=== PATIENT | male | born 1960 | race Hispanic/Latino ===

== ENCOUNTER 2019-02-09 15:32 | Inpatient (IN) | payer OTHER ==
[~2019-02-09] VITALS: Ht 180.3 cm; Wt 104.3 kg
[2019-02-09] MEDS ORDERED: ONDANSETRON HCL 4 MG/2 ML VIAL ONE ×2 (15:57→20:59)
[2019-02-09] MEDS ORDERED: MORPHINE SULFATE 4 MG/1ML SYG ONE (15:57)
[2019-02-09] MEDS ORDERED: SODIUM CHLORIDE 0.9% 1000ML 1,000 ML IV ONE (15:58)
[2019-02-09 16:07] LABS: BASOPHILS % (AUTO) 0.5 % (0.0-5.0); EOSINOPHILS % (AUTO) 1.7 % (0.0-8.0); HEMATOCRIT 46.6 % (42-54); LYMPHOCYTES % (AUTO) 28.1 % (21.0-51.0); MEAN CORPUSCULAR HEMOGLOBIN 32.4 pg (27.0-33.0); MEAN CORPUSCULAR VOLUME 95.2 fL (79-99); MONOCYTES % (AUTO) 9.4 % (3.0-13.0); NEUTROPHILS % (AUTO) 60.3 % (40.0-77.0); PLATELET COUNT (AUTO) 230 K/uL (130-400); RED CELL DISTRIBUTION WIDTH 13.5 % (11.0-15.5); WHITE BLOOD COUNT (AUTO) 7.9 K/uL (4.8-10.8)
[2019-02-09 16:19] LABS: CREATININE 1.1 mg/dL (0.5-1.5); POTASSIUM 3.7 mmol/L (3.5-5.1)
[2019-02-09 16:24] LABS: ALBUMIN 3.6 g/dL (3.5-5.0); TOTAL PROTEIN, SERUM 7.5 g/dL (6.0-8.3)
[2019-02-09 16:41] LABS: APPEARANCE,URINE Clear (CLEAR); BILIRUBIN,URINE Moderate (NEGATIVE); COLOR,URINE Dark Yellow (YELLOW); GLUCOSE, URINE (UA) Negative (NEGATIVE); KETONES,URINE Trace mg/dL (NEGATIVE); LEUKOCYTE ESTERASE ,URINE Trace (NEGATIVE); NITRATE,URINE Negative (NEGATIVE); OCCULT BLOOD,URINE Negative (NEGATIVE); PROTEIN,URINE Negative (NEGATIVE)
[2019-02-09 17:02] LABS: BACTERIA,URINE Rare /HPF (None Seen); MUCUS,URINE Many LPF (None Seen); RBC,URINE None Seen /HPF (0-1); WBC,URINE 0-1 /HPF (0-1)
[2019-02-09] MEDS: SODIUM CHLORIDE 0.9% 1000ML 1,000 ML IV SCH (19:24)
[2019-02-09] MEDS ORDERED: HYDRALAZINE HCL 20 MG/ML VIAL IV PRN (19:30)
[2019-02-09] MEDS ORDERED: ZOLPIDEM TARTRATE 5 MG TAB PO PRN (19:30)
[2019-02-09 20:40] VITALS: BP 172/94
[2019-02-09] MEDS ORDERED: MORPHINE SULFATE 2 MG/ML 1ML SYG ONE (20:59)
[2019-02-09] MEDS ORDERED: ONDANSETRON HCL 4 MG/2 ML VIAL IVP PRN (21:00)
[2019-02-09] MEDS ORDERED: MORPHINE SULFATE 2 MG/ML 1ML SYG IVP PRN (21:00)
[2019-02-09] MEDS: FAMOTIDINE/PF 20 MG/2 ML VIAL IV SCH (21:06)
[2019-02-09] MEDS ORDERED: MORPHINE SULFATE 4 MG/1ML SYG IV PRN (21:30)
[2019-02-09 23:43] VITALS: BP 150/89
[2019-02-09] MEDS: LEVOFLOXACIN 500 MG/D5W 100 ML 100 ML IV SCH (23:57)
[2019-02-10] MEDS: METRONIDAZOLE 500MG/100ML BAG 100 ML IV SCH ×4 (01:27→22:53)
[2019-02-10 04:00] VITALS: BP 135/80
[2019-02-10] MEDS: SODIUM CHLORIDE 0.9% 1000ML 1,000 ML IV SCH ×3 (05:24→21:12)
[2019-02-10 05:36] LABS: BASOPHILS % (AUTO) 0.3 % (0.0-5.0); EOSINOPHILS % (AUTO) 0.9 % (0.0-8.0); HEMATOCRIT 42.4 % (42-54); LYMPHOCYTES % (AUTO) 31.6 % (21.0-51.0); MEAN CORPUSCULAR HEMOGLOBIN 32.7 pg (27.0-33.0); MEAN CORPUSCULAR HGB CONC 34.4 g/dL (32.0-36.0); MEAN CORPUSCULAR VOLUME 95.1 fL (79-99); NEUTROPHILS % (AUTO) 57.2 % (40.0-77.0); PLATELET COUNT (AUTO) 223 K/uL (130-400); RED BLOOD CELL COUNT(AUTO) 4.46 MIL/uL (4.50-6.20); RED CELL DISTRIBUTION WIDTH 13.5 % (11.0-15.5); WHITE BLOOD COUNT (AUTO) 9.6 K/uL (4.8-10.8)
[2019-02-10 08:00] VITALS: BP 129/74
[2019-02-10 08:11] LABS: ALBUMIN 2.2 g/dL (3.5-5.0); BILIRUBIN,TOTAL 9.9 mg/dL (0.2-1.0); TOTAL PROTEIN, SERUM 6.3 g/dL (6.0-8.3)
[2019-02-10 08:52] LABS: BILIRUBIN,DIRECT 8.3 mg/dL (0.0-0.3)
[2019-02-10] MEDS: ENOXAPARIN SODIUM 30 MG/0.3 ML SQ SCH (09:00)
[2019-02-10] MEDS: FAMOTIDINE/PF 20 MG/2 ML VIAL IV SCH ×2 (09:04→21:06)
[2019-02-10 12:00] VITALS: BP 131/75
--- NOTE | 2019-02-10 15:26 | NUR ---
cm note met with patient and states resides at home with parents, pt independent with adls and ambulation. states no dme. no services. dc plan is back to home. pt drives. and did provided with list of low income clinics in the area. pt states he will followup. Addendum: 02/10/19 at 1529 by ROCKY CHOI CM Amended: Links added.
[2019-02-10 16:00] VITALS: BP 139/70
[2019-02-10 19:40] VITALS: BP 132/74
--- NOTE | 2019-02-10 19:48 | NUR ---
PT UPDATE PT ON CLEAR LIQUID NOW, TO BE NOP AFTER MIDNIGHT, PENDING LAB [facility] TOMORROW 02/11/[address] VARGAS, PENDING CONSENT TO BE SIGNED FOR PROCEDURE, PRIMARY NURSE UPDATED, CARE ENDORSED.
[2019-02-10] MEDS: LEVOFLOXACIN 500 MG/D5W 100 ML 100 ML IV SCH (21:06)
--- NOTE | 2019-02-10 21:25 | NUR ---
NOTE CONTACTED DR. VARGAS REGARDING ORDERS FOR CONSENT AND SURGERY I ONLY FOUND AN NPO AFTER MIDNIGHT ORDER ON CHART. HE SAID HE IS NOT ORDERING PROCEDURE/CONSENT AT THIS TIME, ONLY FOR PATIENT TO BE NPO AFTER MIDNIGHT. HE WILL COME TO EVALUATE PATIENT TOMORROW AND DECIDE WHETHER HE WILL HAVE SURGERY OR NO. UPDATED PATIENT ON WHAT DR. VARGAS SAID. ACKNOWLEDGED UNDERSTANDING.
[2019-02-10 23:18] VITALS: BP 127/73
[2019-02-11 03:29] VITALS: BP 130/73
[2019-02-11 04:46] LABS: BASOPHILS % (AUTO) 0.4 % (0.0-5.0); EOSINOPHILS % (AUTO) 2.2 % (0.0-8.0); LYMPHOCYTES % (AUTO) 28.8 % (21.0-51.0); MEAN CORPUSCULAR HEMOGLOBIN 32.6 pg (27.0-33.0); MEAN CORPUSCULAR HGB CONC 33.8 g/dL (32.0-36.0); MEAN CORPUSCULAR VOLUME 96.5 fL (79-99); MONOCYTES % (AUTO) 10.3 % (3.0-13.0); NEUTROPHILS % (AUTO) 58.3 % (40.0-77.0); PLATELET COUNT (AUTO) 193 K/uL (130-400); RED BLOOD CELL COUNT(AUTO) 4.35 MIL/uL (4.50-6.20); RED CELL DISTRIBUTION WIDTH 13.5 % (11.0-15.5); WHITE BLOOD COUNT (AUTO) 7.7 K/uL (4.8-10.8)
[2019-02-11 05:05] LABS: ALBUMIN 2.7 g/dL (3.5-5.0); CREATININE 1.2 mg/dL (0.5-1.5); POTASSIUM 3.7 mmol/L (3.5-5.1); TOTAL PROTEIN, SERUM 6.4 g/dL (6.0-8.3)
[2019-02-11] MEDS: METRONIDAZOLE 500MG/100ML BAG 100 ML IV SCH ×3 (07:36→22:26)
[2019-02-11 07:56] VITALS: BP 122/70
[2019-02-11] MEDS: FAMOTIDINE/PF 20 MG/2 ML VIAL IV SCH ×2 (09:08→20:40)
[2019-02-11] MEDS: ENOXAPARIN SODIUM 30 MG/0.3 ML SQ SCH (09:09)
--- NOTE | 2019-02-11 11:30 | NUR ---
DR. VARGAS STATED PT WILL STAY UNTIL [facility] AND REPEAT LABS
[2019-02-11 12:00] VITALS: BP 144/83
[2019-02-11] MEDS: HYDROCODONE/ACETAMINOPHEN 5/325 MG TAB PO PRN (12:38)
--- NOTE | 2019-02-11 13:30 | NUR ---
DR. VARGAS AWARE PT IS HAVING SEVERE PAIN AFTER MEAL, STATED MAKE HIM CLEAR LIQUIDS DIET
[2019-02-11] MEDS: MORPHINE SULFATE 2 MG/ML 1ML SYG IVP PRN ×3 (14:19→22:36)
[2019-02-11] MEDS: DEXTROSE 5%-LACTATED RINGERS 1,000 ML IV SCH ×2 (14:20→21:45)
[2019-02-11 15:57] VITALS: BP 169/81
[2019-02-11 19:38] VITALS: BP 171/101
[2019-02-11] MEDS: LEVOFLOXACIN 500 MG/D5W 100 ML 100 ML IV SCH (20:40)
[2019-02-11 23:36] VITALS: BP 135/79
[2019-02-12] VITALS (7 sets, daily range): BP systolic 122–149; BP diastolic 61–101
[2019-02-12] MEDS: DEXTROSE 5%-LACTATED RINGERS 1,000 ML IV SCH ×3 (01:28→23:15)
[2019-02-12 05:09] LABS: HEMATOCRIT 41.9 % (42-54); MEAN CORPUSCULAR HEMOGLOBIN 32.6 pg (27.0-33.0); MEAN CORPUSCULAR HGB CONC 34.2 g/dL (32.0-36.0); MEAN CORPUSCULAR VOLUME 95.3 fL (79-99); PLATELET COUNT (AUTO) 233 K/uL (130-400); RED BLOOD CELL COUNT(AUTO) 4.39 MIL/uL (4.50-6.20); RED CELL DISTRIBUTION WIDTH 13.9 % (11.0-15.5); WHITE BLOOD COUNT (AUTO) 8.6 K/uL (4.8-10.8)
[2019-02-12 05:26] LABS: ALBUMIN 2.7 g/dL (3.5-5.0); BILIRUBIN,TOTAL 6.4 mg/dL (0.2-1.0); CREATININE 1.1 mg/dL (0.5-1.5); POTASSIUM 3.5 mmol/L (3.5-5.1); TOTAL PROTEIN, SERUM 6.5 g/dL (6.0-8.3)
[2019-02-12] MEDS: METRONIDAZOLE 500MG/100ML BAG 100 ML IV SCH (05:29)
[2019-02-12] MEDS: FAMOTIDINE/PF 20 MG/2 ML VIAL IV SCH ×2 (09:14→20:34)
[2019-02-12] MEDS: ENOXAPARIN SODIUM 30 MG/0.3 ML SQ SCH (11:29)
--- NOTE | 2019-02-12 16:00 | NUR ---
ELEVATED TEMP CALLED ANDRES DE LA ROSA NP FOR DR. BAZAN TO REPORT 101.6F TEMPERATURE. ANDRES DE LA ROSA NP ORDERED TO GIVE TYLENOL 650MG PO X1, REPEAT BLOOD CX, AND ANTIBIOTIC ORDER.
[2019-02-12] MEDS ORDERED: ACETAMINOPHEN 325 MG TAB ONE (16:12)
[2019-02-12] MEDS ORDERED: CEFTRIAXONE SODIUM 1 GM IVP SCH (17:00)
[2019-02-12] MEDS ORDERED: BACLOFEN 10 MG TABLET PO SCH (17:15)
[2019-02-12] MEDS ORDERED: ACETAMINOPHEN 325 MG TAB PO ONE (17:25)
--- NOTE | 2019-02-12 17:25 | NUR ---
ELEVATED TEMP CALLED ANDRSE DE LA ROSA NP FOR DR. BAZAN THAT TEMPERATURE RECHECK 101.2 AFTER ADMINISTRATION OF TYLENOL 650MG PO. ANDRES DE LA ROSA NP REPLIED TO CONTINUE MONITOR PATIENT ANTIBIOTICS WERE RESUMED.
--- NOTE | 2019-02-12 17:30 | NUR ---
BACK SPASMS REPORTS TO ANDRES DE LA ROSA NP AND DR. BAZAN THAT PATIENT REPORTS BACK SPASMS. PATIENT REPORTS BACK SPASMS STARTED YESTERDAY. PATIENT REPORTS BACK SPASM ARE SO SEVERE THAT HE CAN BARELY WALK. ORDERS OBTAINED FOR BACLOFEN AND LIDOCAINE PATCH.
--- NOTE | 2019-02-12 17:45 | NUR ---
DR. VARGAS RECEIVED PHONE CALL FROM MD CANDY WANTED UPDATE ON PATIENT STATUS. STATES THAT PATIENT MAY HAVE PANCREATITIS DUE TO GALLSTONES. DR. VARGAS ALSO STATED HE WILL REVIEW LIPASE, CBC, BMP LABWORK TOMORROW. NO PLANS FOR SURGERY AT THIS TIME.
[2019-02-12] MEDS: KETOROLAC TROMETHAMINE 15MG/ML IV PRN (20:35)
[2019-02-13 03:46] VITALS: BP 136/69
[2019-02-13 05:15] LABS: HEMATOCRIT 40.8 % (42-54); MEAN CORPUSCULAR HEMOGLOBIN 32.4 pg (27.0-33.0); MEAN CORPUSCULAR HGB CONC 33.9 g/dL (32.0-36.0); MEAN CORPUSCULAR VOLUME 95.5 fL (79-99); NUCLEATED RED BLOOD CELLS 0.1 % (0.0-0.19); PLATELET COUNT (AUTO) 210 K/uL (130-400); RED BLOOD CELL COUNT(AUTO) 4.27 MIL/uL (4.50-6.20); RED CELL DISTRIBUTION WIDTH 13.6 % (11.0-15.5); WHITE BLOOD COUNT (AUTO) 11.3 K/uL (4.8-10.8)
[2019-02-13 05:29] LABS: ALBUMIN 2.7 g/dL (3.5-5.0); BILIRUBIN,TOTAL 3.8 mg/dL (0.2-1.0); CREATININE 1.2 mg/dL (0.5-1.5); POTASSIUM 3.5 mmol/L (3.5-5.1); TOTAL PROTEIN, SERUM 6.5 g/dL (6.0-8.3)
[2019-02-13] MEDS: KETOROLAC TROMETHAMINE 15MG/ML IV PRN ×2 (06:09→13:17)
[2019-02-13 08:00] VITALS: BP 140/82
[2019-02-13] MEDS: FAMOTIDINE/PF 20 MG/2 ML VIAL IV SCH ×2 (09:47→20:40)
[2019-02-13] MEDS: ENOXAPARIN SODIUM 30 MG/0.3 ML SQ SCH (09:47)
[2019-02-13] MEDS: LIDOCAINE 5% TOPICAL PATCH TP SCH (09:47)
[2019-02-13 12:00] VITALS: BP 145/80
[2019-02-13] MEDS: DEXTROSE 5%-LACTATED RINGERS 1,000 ML IV SCH ×2 (12:47→18:49)
[2019-02-13] MEDS: ZOSYN 3.375GM+NS 50ML 50 ML IV SCH ×2 (13:25→20:40)
[2019-02-13 16:00] VITALS: BP 146/96
--- NOTE | 2019-02-13 18:00 | NUR ---
TOLERATING CLEAR LIQUID PATIENT STARTED ON CLEAR LIQUID DIET TODAY. PATIENT ATE LUNCH AND DINNER WITH NO COMPLAINTS OF ABDOMINAL PAIN OR DISCOMFORTS ASSOCIATED WITH EATING.
[2019-02-13 19:22] VITALS: BP 156/85
[2019-02-13] MEDS: HYDROCODONE/ACETAMINOPHEN 5/325 MG TAB PO PRN (21:45)
[2019-02-13 23:53] VITALS: BP 124/67
[2019-02-14 03:39] VITALS: BP 131/78
[2019-02-14 04:14] LABS: HEMATOCRIT 36.4 % (42-54); MEAN CORPUSCULAR HEMOGLOBIN 33.2 pg (27.0-33.0); MEAN CORPUSCULAR HGB CONC 34.5 g/dL (32.0-36.0); MEAN CORPUSCULAR VOLUME 96.2 fL (79-99); PLATELET COUNT (AUTO) 223 K/uL (130-400); RED BLOOD CELL COUNT(AUTO) 3.79 MIL/uL (4.50-6.20); RED CELL DISTRIBUTION WIDTH 13.9 % (11.0-15.5); WHITE BLOOD COUNT (AUTO) 9.4 K/uL (4.8-10.8)
[2019-02-14 04:27] LABS: ALBUMIN 2.4 g/dL (3.5-5.0); BILIRUBIN,TOTAL 2.3 mg/dL (0.2-1.0); CREATININE 1.2 mg/dL (0.5-1.5); POTASSIUM 3.4 mmol/L (3.5-5.1); TOTAL PROTEIN, SERUM 6.1 g/dL (6.0-8.3)
[2019-02-14 04:34] LABS: LYMPHOCYTES % (MANUAL) 37 % (22-44); MAN.DIFF COMMENT-IMPRESSION MANUAL DIFFERENTIAL; MONOCYTES % (MANUAL) 11 % (2-9); PLATELET MORPHOLOGY COMMENT ADEQUATE; SEGMENTED NEUTROPHILS % 52 % (40-70)
[2019-02-14] MEDS: ZOSYN 3.375GM+NS 50ML 50 ML IV SCH ×3 (05:34→21:44)
[2019-02-14] MEDS: DEXTROSE 5%-LACTATED RINGERS 1,000 ML IV SCH ×2 (05:40→19:34)
[2019-02-14 07:30] VITALS: BP 129/80
[2019-02-14] MEDS: FAMOTIDINE/PF 20 MG/2 ML VIAL IV SCH ×2 (09:36→21:44)
[2019-02-14] MEDS: LIDOCAINE 5% TOPICAL PATCH TP SCH (09:36)
[2019-02-14] MEDS: ENOXAPARIN SODIUM 30 MG/0.3 ML SQ SCH (09:36)
[2019-02-14 11:00] VITALS: BP 130/78
[2019-02-14 16:00] VITALS: BP 150/99
[2019-02-14 19:30] VITALS: BP 148/98
[2019-02-14] MEDS: KETOROLAC TROMETHAMINE 15MG/ML IV PRN (21:51)
[2019-02-14 22:54] VITALS: BP 140/80
[2019-02-15] MEDS: DEXTROSE 5%-LACTATED RINGERS 1,000 ML IV SCH ×4 (00:34→20:28)
[2019-02-15 03:07] VITALS: BP 129/81
[2019-02-15 04:00] LABS: HEMATOCRIT 36.8 % (42-54); MEAN CORPUSCULAR HEMOGLOBIN 32.6 pg (27.0-33.0); MEAN CORPUSCULAR HGB CONC 33.6 g/dL (32.0-36.0); MEAN CORPUSCULAR VOLUME 97.3 fL (79-99); PLATELET COUNT (AUTO) 231 K/uL (130-400); RED BLOOD CELL COUNT(AUTO) 3.79 MIL/uL (4.50-6.20); RED CELL DISTRIBUTION WIDTH 13.9 % (11.0-15.5)
[2019-02-15 04:29] LABS: ALBUMIN 2.4 g/dL (3.5-5.0); CREATININE 1.1 mg/dL (0.5-1.5); POTASSIUM 3.4 mmol/L (3.5-5.1); TOTAL PROTEIN, SERUM 6.3 g/dL (6.0-8.3)
[2019-02-15] MEDS: ZOSYN 3.375GM+NS 50ML 50 ML IV SCH ×3 (06:08→20:28)
[2019-02-15 08:04] VITALS: BP 138/79
[2019-02-15] MEDS ORDERED: POTASSIUM CHLORIDE 10% ELIXIR 20 MEQ/15 ML UDCUP PO PRN (08:15)
[2019-02-15] MEDS ORDERED: LIDOCAINE HCL-MPF 1% 2ML VIAL IVP PRN (08:15)
[2019-02-15] MEDS ORDERED: POTASSIUM CHLORIDE 20MEQ/100ML 100 ML IV PRN (08:15)
[2019-02-15] MEDS: LIDOCAINE 5% TOPICAL PATCH TP SCH (09:28)
[2019-02-15] MEDS: FAMOTIDINE/PF 20 MG/2 ML VIAL IV SCH ×2 (09:28→20:34)
[2019-02-15] MEDS: ENOXAPARIN SODIUM 30 MG/0.3 ML SQ SCH (09:29)
[2019-02-15] MEDS: POTASSIUM CHLORIDE 20 MEQ ERTAB PO PRN ×2 (09:30→12:53)
--- NOTE | 2019-02-15 11:45 | NUR ---
Nutrition Intervention: Nutrition screen based on LOS x 6 days. Pt. admitted with Dx of Cholelithiasis. Pt. on Full Liquid diet with good p.o. intake, as per pt. Pt. c/o loose stools this morning. Labs reviewed(Alb 2.4, T. Bili 2.0, ALT 85, Alk Phos 323, Lipase 659). LBM: 02/15/19, loose as per pt. SR-20, elastic. BMI: 32.1, Obesity Grade 1. Recommendations: 1) Rec. advance diet as tolerated to Low Fat Soft. 2) Rec. antidiarrheal medication prn for lower GI distress. 3) Continue to monitor pt's nutritional status. 4) Consult RD as nutrition concerns arise. Addendum: 02/15/19 at [address] Amended: Links added.
[2019-02-15 12:00] VITALS: BP 150/90
--- NOTE | 2019-02-15 13:00 | NUR ---
PATIENT UP WALKING IN HALLS NO DISTRESS, LIPASE STILL ELEVATED, WAITING FOR DISCHARGE ORDER PER SURGEON Addendum: 02/15/19 at 1627 by PETRONA SAEZ RN CM Amended: Links added.
[2019-02-15 16:04] VITALS: BP 142/86
[2019-02-15] MEDS: LACTOBACILLUS RHAMNOSUS GG 1 EACH CAP.SPRINK PO SCH (16:40)
[2019-02-15 19:50] VITALS: BP 152/87
[2019-02-15 23:42] VITALS: BP 134/75
[2019-02-16 04:15] VITALS: BP 141/86
[2019-02-16 04:19] LABS: HEMATOCRIT 35.9 % (42-54); MEAN CORPUSCULAR HEMOGLOBIN 32.7 pg (27.0-33.0); MEAN CORPUSCULAR VOLUME 96.2 fL (79-99); PLATELET COUNT (AUTO) 266 K/uL (130-400); RED BLOOD CELL COUNT(AUTO) 3.73 MIL/uL (4.50-6.20); RED CELL DISTRIBUTION WIDTH 13.5 % (11.0-15.5); WHITE BLOOD COUNT (AUTO) 7.6 K/uL (4.8-10.8)
[2019-02-16 04:35] LABS: HEMOGLOBIN A1C 5.5 % (4.0-6.0)
[2019-02-16 04:39] LABS: ALBUMIN 2.5 g/dL (3.5-5.0); BILIRUBIN,TOTAL 1.3 mg/dL (0.2-1.0); CREATININE 1.1 mg/dL (0.5-1.5); POTASSIUM 3.3 mmol/L (3.5-5.1); TOTAL PROTEIN, SERUM 6.4 g/dL (6.0-8.3)
[2019-02-16] MEDS: ZOSYN 3.375GM+NS 50ML 50 ML IV SCH (06:07)
[2019-02-16] MEDS: DEXTROSE 5%-LACTATED RINGERS 1,000 ML IV SCH (06:09)
[2019-02-16] MEDS: POTASSIUM CHLORIDE 20 MEQ ERTAB PO PRN ×3 (07:55→13:49)
[2019-02-16 08:00] VITALS: BP 138/81
[2019-02-16] MEDS: LACTOBACILLUS RHAMNOSUS GG 1 EACH CAP.SPRINK PO SCH ×2 (08:48→11:09)
[2019-02-16] MEDS: LIDOCAINE 5% TOPICAL PATCH TP SCH (08:48)
[2019-02-16] MEDS: FAMOTIDINE/PF 20 MG/2 ML VIAL IV SCH (08:48)
[2019-02-16] MEDS: ENOXAPARIN SODIUM 30 MG/0.3 ML SQ SCH (08:49)
[2019-02-16 12:00] VITALS: BP 141/86
[2019-02-16] MEDS ORDERED: LACT1CAP79 PO (13:58)
[2019-02-16] MEDS ORDERED: CEPH-578 PO (14:07)
--- NOTE | 2019-02-16 14:30 | NUR ---
DISCHARGE DISCHARGE TEACHING DONE WITH PATIENT AND FAMILY USING TEACHBACK METHOD, VERBALIZED UNDERSTANDING. NO NOTED SOB OR DISTRESS. PT AWARE OF NEED TO SET UP FOLLOW UP APPOINTMENT WITH DR. VARGAS. NEW MEDICATION ADMINISTRATION TEACHING DONE WITH PATIENT, VERBALIZED UNDERSTANDING. DIET TEACHING DONE WITH PATIENT, VERBALIZED UNDERSTANDING. IV REMOVED, CATH TIP INTACT. PENDING TO BE TRANSFERRED OUT VIA PRIVATE VEHICLE.
== END 2019-02-16 15:01 | disposition home or self-care (01) | DRG 444 ==
LOC: EDH 15:32 → EDHIP 15:33 → 4BH 19:55
PROVIDERS: ADMIT Hospitalist; ATTEND Hospitalist
DX: K80.12 Calculus of gallbladder with acute and chronic cholecystitis without obstruction (principal); K85.10 Biliary acute pancreatitis without necrosis or infection; E44.0 Moderate protein-calorie malnutrition; N39.0 Urinary tract infection, site not specified; R73.9 Hyperglycemia, unspecified; K76.89 Other specified diseases of liver; Z68.32 Body mass index [BMI] 32.0-32.9, adult
CPT/HCPCS: 36415; 74181; 76705; 80053; 80076; 81001; 83036; 83605; 83690; 84484; 85025; 85027; 87040; 93005; G0378; J0696; J1650; J1885; J1956; J2270; J2405; J2543; J3490; J7030